=== PATIENT | female | born 1960 | race Caucasian/White ===

== ENCOUNTER 2022-01-09 18:27 | Inpatient (IN) ==
[2022-01-09] MEDS ORDERED: 0.9 % Sodium Chloride 1,000 ML IVC ONE (18:45)
[2022-01-09 19:18] LABS: Basophils % 0.2 %
[2022-01-09 19:20] LABS: VBG Ionized Calcium 1.03 mmol/L (1.15-1.35)
[2022-01-09 19:26] LABS: Prothrombin Time 10.7 Seconds (9.4-12.1)
[2022-01-09 19:29] LABS: Activated Partial Thrombo Time 29.4 Seconds (26.0-36.0)
[2022-01-09 19:58] LABS: Alanine Aminotransferase 55 Units/L (7-52); Albumin 4.2 g/dL (3.5-5.7); Albumin/Globulin Ratio 1.9 (1.1-2.2); Alkaline Phosphatase 69 Units/L (34-104); Aspartate Amino Transferase 68 Units/L (13-39); BUN/Creatinine Ratio 12 (6-26); Bilirubin,Direct 0.1 mg/dL (0.0-0.2); Bilirubin,Indirect 1.2 mg/dL (0.0-1.0); Bilirubin,Total 1.3 mg/dL (0.3-1.0); Blood Urea Nitrogen 9 mg/dL (8-23); Calcium 8.9 mg/dL (8.6-10.3); Carbon Dioxide 22 mEq/L (23-29); Chloride 65 mEq/L (98-107); Creatine Kinase 559 Units/L (30-223); Globulin 2.2 g/dL (2.4-3.5); Glucose 106 mg/dL (70-105); Osmolality,Calculated 209 (280-300); Potassium 3.7 mEq/L (3.5-5.1); Sodium 100 mEq/L (136-145); Total Protein 6.4 g/dL (6.4-8.9); Troponin I 0.03 ng/mL (< 0.04); eGFR For African Americans > 60 (> 60); eGFR For Non-African Americans > 60 (> 60)
[2022-01-09 20:08] LABS: Thyroid Stimulating Hormone 1.644 mcIU/mL (0.340-5.600)
[2022-01-09 20:11] LABS: Immature Granulocytes % 0.7 % (0-4); Lymphocytes # 0.5 K/mcL (0.6-4.6); Lymphocytes % 3.4 %; Mean Platelet Volume 9.7 fL (9.4-12.4); Monocytes # 0.9 K/mcL (0.0-1.3); Monocytes % 7.1 %; Neutrophils # 11.8 K/mcL (1.6-8.9); Platelet Count 215 K/mcL (140-400); Segmented Neutrophils % 88.6 %; White Blood Count 13.3 K/mcL (4.3-11.1)
[2022-01-09] MEDS ORDERED: 0.9 % Sodium Chloride 1,000 ML IVC SCH (20:15)
[2022-01-09] MEDS ORDERED: *HR* FentaNYL (PF) 100 MCG/2 ML VIAL IVP ONE (20:21)
[2022-01-09] MEDS ORDERED: Ondansetron 4 MG/2 ML VIAL IVP ONE (20:21)
[2022-01-09 21:06] LABS: Bilirubin,Urine Negative (Negative); Blood,Urine Negative (Negative); Clarity,Urine Clear (Clear); Color,Urine Light-Yellow (Yellow); Glucose,Urine (UA) Normal (Normal); Ketones,Urine 20 mg/dL (Negative); Leukocyte Esterase,Urine Negative (Negative); Nitrite,Urine Negative (Negative); PH,Urine 5.5 pH Units (5.0-8.0); Protein,Urine Negative (Neg-Trace); Specific Gravity,Urine 1.011 (1.010-1.025); Urobilinogen,Urine Normal (Normal)
[2022-01-09 21:27] LABS: Red Blood Count 3.12 M/mcL (3.82-4.97)
[2022-01-09 21:28] LABS: Hemoglobin 10.5 g/dL (11.5-15.4)
[2022-01-09 21:29] LABS: Mean Corpuscular HGB Conc 37.5 g/dL (31.6-35.5); Mean Corpuscular Hemoglobin 33.7 pg (28.0-33.3)
[2022-01-09 21:30] LABS: Mean Corpuscular Volume 89.7 fL (83.0-100.0)
[2022-01-09] MEDS ORDERED: Melatonin 3 MG TABLET PO PRN (21:45)
[2022-01-09] MEDS ORDERED: Ondansetron 4 MG/2 ML VIAL IVP PRN (21:45)
[2022-01-09] MEDS ORDERED: Naloxone 0.4 MG/ML INJ IVP PRN (21:45)
[2022-01-09] MEDS ORDERED: *HR* LORazepam 2 MG/ML VIAL IVP PRN ×3 (22:02)
[2022-01-09] MEDS: Folic Acid 1 MG in 0.9 % Sodium Chloride 50 ML IVPB SCH (22:39)
[2022-01-09 23:22] LABS: BUN/Creatinine Ratio 14 (6-26); Blood Urea Nitrogen 9 mg/dL (8-23); Calcium 8.1 mg/dL (8.6-10.3); Carbon Dioxide 22 mEq/L (23-29); Chloride 72 mEq/L (98-107); Glucose 104 mg/dL (70-105); Osmolality,Calculated 221 (280-300); Potassium 3.2 mEq/L (3.5-5.1); Sodium 106 mEq/L (136-145); eGFR For African Americans > 60 (> 60); eGFR For Non-African Americans > 60 (> 60)
[2022-01-10] MEDS: D5% in Water 1,000 ML IVC SCH ×2 (00:05→09:07)
[2022-01-10 02:48] LABS: BUN/Creatinine Ratio 11 (6-26); Blood Urea Nitrogen 8 mg/dL (8-23); Carbon Dioxide 25 mEq/L (23-29); Chloride 72 mEq/L (98-107); Glucose 108 mg/dL (70-105); Osmolality,Calculated 219 (280-300); Potassium 3.7 mEq/L (3.5-5.1); Sodium 105 mEq/L (136-145); eGFR For African Americans > 60 (> 60); eGFR For Non-African Americans > 60 (> 60)
[2022-01-10 05:06] LABS: BUN/Creatinine Ratio 12 (6-26); Blood Urea Nitrogen 8 mg/dL (8-23); Carbon Dioxide 25 mEq/L (23-29); Chloride 72 mEq/L (98-107); Glucose 110 mg/dL (70-105); Osmolality,Calculated 219 (280-300); Potassium 3.9 mEq/L (3.5-5.1); Sodium 105 mEq/L (136-145); eGFR For African Americans > 60 (> 60); eGFR For Non-African Americans > 60 (> 60)
[2022-01-10 05:17] LABS: Alanine Aminotransferase 42 Units/L (7-52); Albumin 3.5 g/dL (3.5-5.7); Albumin/Globulin Ratio 1.9 (1.1-2.2); Alkaline Phosphatase 63 Units/L (34-104); Aspartate Amino Transferase 47 Units/L (13-39); Bilirubin,Direct 0.3 mg/dL (0.0-0.2); Bilirubin,Indirect 0.9 mg/dL (0.0-1.0); Bilirubin,Total 1.2 mg/dL (0.3-1.0); Creatine Kinase 622 Units/L (30-223); Globulin 1.8 g/dL (2.4-3.5); Total Protein 5.3 g/dL (6.4-8.9); Troponin I < 0.03 ng/mL (< 0.04)
[2022-01-10 06:58] LABS: BUN/Creatinine Ratio 12 (6-26); Blood Urea Nitrogen 8 mg/dL (8-23); Calcium 8.2 mg/dL (8.6-10.3); Carbon Dioxide 24 mEq/L (23-29); Chloride 71 mEq/L (98-107); Glucose 99 mg/dL (70-105); Osmolality,Calculated 218 (280-300); Sodium 105 mEq/L (136-145); eGFR For African Americans > 60 (> 60); eGFR For Non-African Americans > 60 (> 60)
[2022-01-10 08:56] LABS: BUN/Creatinine Ratio 11 (6-26); Blood Urea Nitrogen 7 mg/dL (8-23); Calcium 8.2 mg/dL (8.6-10.3); Carbon Dioxide 24 mEq/L (23-29); Chloride 71 mEq/L (98-107); Glucose 147 mg/dL (70-105); Osmolality,Calculated 217 (280-300); Potassium 3.8 mEq/L (3.5-5.1); Sodium 103 mEq/L (136-145); eGFR For African Americans > 60 (> 60); eGFR For Non-African Americans > 60 (> 60)
[2022-01-10] MEDS: Ketorolac 30 MG/ML VIAL IVP PRN ×2 (09:07→17:46)
[2022-01-10] MEDS ORDERED: 0.9 % Sodium Chloride 1,000 ML IVC SCH (10:00)
[2022-01-10] MEDS: Folic Acid 1 MG in 0.9 % Sodium Chloride 50 ML IVPB SCH (10:02)
[2022-01-10] MEDS: Thiamine (B-1) 200 MG in 0.9 % Sodium Chloride 50 ML IVPB SCH (10:03)
[2022-01-10] MEDS ORDERED: Lidocaine -MPF 1% 5 ML AMPUL INFILT ONE (11:12)
[2022-01-10 11:18] LABS: Basophils % 0.3 %; Eosinophils % 0.2 %; Immature Granulocytes % 0.5 % (0-4); Lymphocytes # 0.7 K/mcL (0.6-4.6); Lymphocytes % 11.1 %; Mean Platelet Volume 9.1 fL (9.4-12.4); Monocytes # 0.9 K/mcL (0.0-1.3); Monocytes % 14.3 %; Platelet Count 159 K/mcL (140-400); Red Blood Count 2.58 M/mcL (3.82-4.97); Red Cell Distribution Width 11.2 % (11.5-14.5); Segmented Neutrophils % 73.6 %; White Blood Count 6.6 K/mcL (4.3-11.1)
[2022-01-10 11:19] LABS: Hemoglobin 8.6 g/dL (11.5-15.4); Neutrophils # 4.9 K/mcL (1.6-8.9)
[2022-01-10 11:19] LABS: BUN/Creatinine Ratio 11 (6-26); Blood Urea Nitrogen 7 mg/dL (8-23); Calcium 7.9 mg/dL (8.6-10.3); Carbon Dioxide 25 mEq/L (23-29); Chloride 72 mEq/L (98-107); Glucose 127 mg/dL (70-105); Osmolality,Calculated 216 (280-300); Potassium 3.7 mEq/L (3.5-5.1); Sodium 103 mEq/L (136-145); eGFR For African Americans > 60 (> 60); eGFR For Non-African Americans > 60 (> 60)
[2022-01-10 11:20] LABS: Hematocrit 23.8 % (35.3-44.9); Mean Corpuscular HGB Conc 36.1 g/dL (31.6-35.5); Mean Corpuscular Hemoglobin 34.1 pg (28.0-33.3); Mean Corpuscular Volume 94.4 fL (83.0-100.0)
[2022-01-10 13:51] LABS: BUN/Creatinine Ratio 12 (6-26); Blood Urea Nitrogen 8 mg/dL (8-23); Calcium 8.1 mg/dL (8.6-10.3); Carbon Dioxide 25 mEq/L (23-29); Chloride 73 mEq/L (98-107); Glucose 102 mg/dL (70-105); Osmolality,Calculated 217 (280-300); Potassium 3.9 mEq/L (3.5-5.1); Sodium 104 mEq/L (136-145); eGFR For African Americans > 60 (> 60); eGFR For Non-African Americans > 60 (> 60)
[2022-01-10 16:26] LABS: BUN/Creatinine Ratio 14 (6-26); Blood Urea Nitrogen 6 mg/dL (8-23); Calcium 5.8 mg/dL (8.6-10.3); Carbon Dioxide 19 mEq/L (23-29); Chloride 91 mEq/L (98-107); Glucose 83 mg/dL (70-105); Osmolality,Calculated 237 (280-300); Potassium 2.9 mEq/L (3.5-5.1); Sodium 115 mEq/L (136-145); eGFR For African Americans > 60 (> 60); eGFR For Non-African Americans > 60 (> 60)
[2022-01-10] MEDS ORDERED: D5% in Water 1,000 ML IVC SCH (16:45)
[2022-01-10] MEDS: *HR* Heparin 5,000 UNIT/ML VIAL SQ SCH (16:49)
[2022-01-10] MEDS: Calcium Gluconate 1gm/50mL 1 GM/50 ML BAG IVPB SCH ×2 (17:42→18:28)
[2022-01-10 20:46] LABS: BUN/Creatinine Ratio 12 (6-26); Blood Urea Nitrogen 8 mg/dL (8-23); Calcium 8.7 mg/dL (8.6-10.3); Carbon Dioxide 25 mEq/L (23-29); Chloride 72 mEq/L (98-107); Glucose 136 mg/dL (70-105); Osmolality,Calculated 214 (280-300); Potassium 4.2 mEq/L (3.5-5.1); Sodium 102 mEq/L (136-145); eGFR For African Americans > 60 (> 60); eGFR For Non-African Americans > 60 (> 60)
[2022-01-10 23:49] LABS: BUN/Creatinine Ratio 13 (6-26); Blood Urea Nitrogen 8 mg/dL (8-23); Calcium 8.4 mg/dL (8.6-10.3); Carbon Dioxide 24 mEq/L (23-29); Chloride 72 mEq/L (98-107); Glucose 99 mg/dL (70-105); Osmolality,Calculated 214 (280-300); Potassium 4.3 mEq/L (3.5-5.1); Sodium 103 mEq/L (136-145); eGFR For African Americans > 60 (> 60); eGFR For Non-African Americans > 60 (> 60)
[2022-01-11 04:15] LABS: Magnesium 1.2 mg/dL (1.6-2.6); Phosphorous 1.8 mg/dL (2.7-4.5)
[2022-01-11 04:17] LABS: BUN/Creatinine Ratio 13 (6-26); Blood Urea Nitrogen 7 mg/dL (8-23); Calcium 7.3 mg/dL (8.6-10.3); Carbon Dioxide 22 mEq/L (23-29); Chloride 81 mEq/L (98-107); Creatine Kinase 286 Units/L (30-223); Glucose 90 mg/dL (70-105); Osmolality,Calculated 224 (280-300); Potassium 3.8 mEq/L (3.5-5.1); Sodium 108 mEq/L (136-145); eGFR For African Americans > 60 (> 60); eGFR For Non-African Americans > 60 (> 60)
[2022-01-11 05:12] LABS: Hematocrit 18.1 % (35.3-44.9)
[2022-01-11 05:14] LABS: Hemoglobin 6.8 g/dL (11.5-15.4); Immature Platelets 5.6 % (1.1-6.1); Mean Corpuscular HGB Conc 37.6 g/dL (31.6-35.5); Mean Corpuscular Hemoglobin 34.2 pg (28.0-33.3); Mean Platelet Volume 9.7 fL (9.4-12.4); Red Blood Count 1.99 M/mcL (3.82-4.97); Red Cell Distribution Width 11.3 % (11.5-14.5); White Blood Count 6.7 K/mcL (4.3-11.1)
[2022-01-11] MEDS ORDERED: 0.9 % Sodium Chloride 1,000 ML ONE (05:14)
[2022-01-11] MEDS: *HR* Heparin 5,000 UNIT/ML VIAL SQ SCH (05:23)
[2022-01-11 07:14] LABS: BUN/Creatinine Ratio 12 (6-26); Blood Urea Nitrogen 7 mg/dL (8-23); Calcium 7.9 mg/dL (8.6-10.3); Carbon Dioxide 24 mEq/L (23-29); Chloride 75 mEq/L (98-107); Glucose 99 mg/dL (70-105); Osmolality,Calculated 216 (280-300); Potassium 4.2 mEq/L (3.5-5.1); Sodium 104 mEq/L (136-145); eGFR For African Americans > 60 (> 60); eGFR For Non-African Americans > 60 (> 60)
[2022-01-11] MEDS ORDERED: 0.9 % Sodium Chloride 1,000 ML IVC SCH (07:30)
[2022-01-11] MEDS: Folic Acid 1 MG in 0.9 % Sodium Chloride 50 ML IVPB SCH (07:32)
[2022-01-11] MEDS: Thiamine (B-1) 200 MG in 0.9 % Sodium Chloride 50 ML IVPB SCH (07:33)
[2022-01-11 09:12] LABS: BUN/Creatinine Ratio 12 (6-26); Blood Urea Nitrogen 7 mg/dL (8-23); Carbon Dioxide 23 mEq/L (23-29); Chloride 76 mEq/L (98-107); Glucose 101 mg/dL (70-105); Osmolality,Calculated 218 (280-300); Potassium 4.1 mEq/L (3.5-5.1); Sodium 105 mEq/L (136-145); eGFR For African Americans > 60 (> 60); eGFR For Non-African Americans > 60 (> 60)
[2022-01-11 09:32] LABS: BUN/Creatinine Ratio 14 (6-26); Blood Urea Nitrogen 7 mg/dL (8-23); Calcium 7.9 mg/dL (8.6-10.3); Carbon Dioxide 21 mEq/L (23-29); Chloride 75 mEq/L (98-107); Glucose 91 mg/dL (70-105); Osmolality,Calculated 212 (280-300); Potassium 3.7 mEq/L (3.5-5.1); Sodium 102 mEq/L (136-145); eGFR For African Americans > 60 (> 60); eGFR For Non-African Americans > 60 (> 60)
[2022-01-11] MEDS: 0.9 % Sodium Chloride 1,000 ML IVC SCH ×2 (10:44→20:37)
[2022-01-11 14:58] LABS: BUN/Creatinine Ratio 13 (6-26); Blood Urea Nitrogen 6 mg/dL (8-23); Calcium 6.9 mg/dL (8.6-10.3); Carbon Dioxide 23 mEq/L (23-29); Chloride 85 mEq/L (98-107); Glucose 94 mg/dL (70-105); Osmolality,Calculated 233 (280-300); Potassium 3.4 mEq/L (3.5-5.1); Sodium 113 mEq/L (136-145); eGFR For African Americans > 60 (> 60); eGFR For Non-African Americans > 60 (> 60)
[2022-01-11 19:02] LABS: BUN/Creatinine Ratio 14 (6-26); Blood Urea Nitrogen 7 mg/dL (8-23); Calcium 7.1 mg/dL (8.6-10.3); Carbon Dioxide 24 mEq/L (23-29); Chloride 85 mEq/L (98-107); Glucose 119 mg/dL (70-105); Osmolality,Calculated 235 (280-300); Potassium 3.6 mEq/L (3.5-5.1); eGFR For African Americans > 60 (> 60); eGFR For Non-African Americans > 60 (> 60)
[2022-01-11 20:23] LABS: Sodium 113 mEq/L (136-145)
[2022-01-11 23:49] LABS: BUN/Creatinine Ratio 12 (6-26); Blood Urea Nitrogen 7 mg/dL (8-23); Calcium 7.5 mg/dL (8.6-10.3); Carbon Dioxide 25 mEq/L (23-29); Chloride 83 mEq/L (98-107); Glucose 122 mg/dL (70-105); Osmolality,Calculated 235 (280-300); Potassium 3.6 mEq/L (3.5-5.1); Sodium 113 mEq/L (136-145); eGFR For African Americans > 60 (> 60); eGFR For Non-African Americans > 60 (> 60)
[2022-01-12 03:56] LABS: BUN/Creatinine Ratio 12 (6-26); Blood Urea Nitrogen 6 mg/dL (8-23); Carbon Dioxide 24 mEq/L (23-29); Chloride 90 mEq/L (98-107); Glucose 102 mg/dL (70-105); Magnesium 1.6 mg/dL (1.6-2.6); Osmolality,Calculated 246 (280-300); Phosphorous 2.1 mg/dL (2.7-4.5); Potassium 3.2 mEq/L (3.5-5.1); Sodium 119 mEq/L (136-145); eGFR For African Americans > 60 (> 60); eGFR For Non-African Americans > 60 (> 60)
[2022-01-12 05:44] LABS: Hematocrit 19.1 % (35.3-44.9); Mean Corpuscular Volume 89.7 fL (83.0-100.0); Red Blood Count 2.13 M/mcL (3.82-4.97)
[2022-01-12 05:46] LABS: Hemoglobin 7.2 g/dL (11.5-15.4); Immature Platelets 3.5 % (1.1-6.1); Mean Corpuscular Hemoglobin 33.8 pg (28.0-33.3); Red Cell Distribution Width 12.4 % (11.5-14.5); White Blood Count 3.6 K/mcL (4.3-11.1)
[2022-01-12 05:47] LABS: Mean Corpuscular HGB Conc 37.7 g/dL (31.6-35.5)
[2022-01-12 07:30] LABS: BUN/Creatinine Ratio 9 (6-26); Blood Urea Nitrogen 5 mg/dL (8-23); Calcium 7.7 mg/dL (8.6-10.3); Carbon Dioxide 26 mEq/L (23-29); Chloride 86 mEq/L (98-107); Glucose 109 mg/dL (70-105); Osmolality,Calculated 242 (280-300); Potassium 3.4 mEq/L (3.5-5.1); Sodium 117 mEq/L (136-145); eGFR For African Americans > 60 (> 60); eGFR For Non-African Americans > 60 (> 60)
[2022-01-12] MEDS: Thiamine (B-1) 200 MG in 0.9 % Sodium Chloride 50 ML IVPB SCH (08:29)
[2022-01-12 10:56] LABS: BUN/Creatinine Ratio 8 (6-26); Blood Urea Nitrogen 5 mg/dL (8-23); Calcium 7.6 mg/dL (8.6-10.3); Carbon Dioxide 26 mEq/L (23-29); Chloride 87 mEq/L (98-107); Glucose 144 mg/dL (70-105); Osmolality,Calculated 244 (280-300); Potassium 3.5 mEq/L (3.5-5.1); Sodium 117 mEq/L (136-145); eGFR For African Americans > 60 (> 60); eGFR For Non-African Americans > 60 (> 60)
[2022-01-12] MEDS ORDERED: Povidone-Iodine 45 ML, Sodium Chloride IRRigation 1,000 ML IR ONE (12:55)
[2022-01-12] MEDS ORDERED: TOTAL JOINT MIXTURE (100ML) INTRAART ONE (12:55)
[2022-01-12 15:12] LABS: BUN/Creatinine Ratio 9 (6-26); Blood Urea Nitrogen 5 mg/dL (8-23); Calcium 7.8 mg/dL (8.6-10.3); Carbon Dioxide 26 mEq/L (23-29); Chloride 89 mEq/L (98-107); Glucose 114 mg/dL (70-105); Osmolality,Calculated 246 (280-300); Potassium 3.5 mEq/L (3.5-5.1); Sodium 119 mEq/L (136-145); eGFR For African Americans > 60 (> 60); eGFR For Non-African Americans > 60 (> 60)
[2022-01-12 16:55] LABS: BUN/Creatinine Ratio 18 (6-26); Blood Urea Nitrogen 12 mg/dL (8-23); Carbon Dioxide 27 mEq/L (23-29); Chloride 77 mEq/L (98-107); Glucose 129 mg/dL (70-105); Osmolality,Calculated 235 (280-300); Potassium 3.5 mEq/L (3.5-5.1); Sodium 112 mEq/L (136-145); eGFR For African Americans > 60 (> 60); eGFR For Non-African Americans > 60 (> 60)
[2022-01-12] MEDS: 0.9 % Sodium Chloride 1,000 ML IVC SCH (17:25)
[2022-01-12 20:42] LABS: BUN/Creatinine Ratio 10 (6-26); Blood Urea Nitrogen 5 mg/dL (8-23); Calcium 7.7 mg/dL (8.6-10.3); Carbon Dioxide 25 mEq/L (23-29); Chloride 88 mEq/L (98-107); Glucose 104 mg/dL (70-105); Osmolality,Calculated 244 (280-300); Potassium 3.4 mEq/L (3.5-5.1); Sodium 118 mEq/L (136-145); eGFR For African Americans > 60 (> 60); eGFR For Non-African Americans > 60 (> 60)
[2022-01-13 00:53] LABS: BUN/Creatinine Ratio 8 (6-26); Blood Urea Nitrogen 4 mg/dL (8-23); Calcium 7.7 mg/dL (8.6-10.3); Carbon Dioxide 25 mEq/L (23-29); Chloride 88 mEq/L (98-107); Glucose 96 mg/dL (70-105); Osmolality,Calculated 245 (280-300); Potassium 3.3 mEq/L (3.5-5.1); Sodium 119 mEq/L (136-145); eGFR For African Americans > 60 (> 60); eGFR For Non-African Americans > 60 (> 60)
[2022-01-13] MEDS: 0.9 % Sodium Chloride 1,000 ML IVC SCH (04:47)
[2022-01-13 05:12] LABS: Basophils # 0.1 K/mcL (0.0-0.2); Basophils % 0.9 %; Eosinophils # 0.1 K/mcL (0.0-0.6); Eosinophils % 1.3 %; Hemoglobin 7.6 g/dL (11.5-15.4); Immature Granulocytes % 1.3 % (0-4); Lymphocytes # 0.6 K/mcL (0.6-4.6); Lymphocytes % 8.9 %; Mean Corpuscular HGB Conc 36.2 g/dL (31.6-35.5); Mean Corpuscular Hemoglobin 33.6 pg (28.0-33.3); Mean Corpuscular Volume 92.9 fL (83.0-100.0); Mean Platelet Volume 8.8 fL (9.4-12.4); Monocytes % 14.5 %; Platelet Count 153 K/mcL (140-400); Red Blood Count 2.26 M/mcL (3.82-4.97); Red Cell Distribution Width 12.2 % (11.5-14.5); Segmented Neutrophils % 73.1 %; White Blood Count 6.8 K/mcL (4.3-11.1)
[2022-01-13 06:02] LABS: BUN/Creatinine Ratio 9 (6-26); Blood Urea Nitrogen 4 mg/dL (8-23); Calcium 7.6 mg/dL (8.6-10.3); Carbon Dioxide 25 mEq/L (23-29); Chloride 89 mEq/L (98-107); Glucose 95 mg/dL (70-105); Osmolality,Calculated 245 (280-300); Potassium 3.3 mEq/L (3.5-5.1); Sodium 119 mEq/L (136-145); eGFR For African Americans > 60 (> 60); eGFR For Non-African Americans > 60 (> 60)
[2022-01-13] MEDS: Thiamine (B-1) 100 MG TABLET PO SCH (08:06)
[2022-01-13] MEDS: Folic Acid 1 MG TABLET PO SCH (08:06)
[2022-01-13] MEDS: Acetaminophen 325 MG TABLET PO PRN ×2 (08:06→20:46)
[2022-01-13 09:42] LABS: BUN/Creatinine Ratio 10 (6-26); Blood Urea Nitrogen 4 mg/dL (8-23); Carbon Dioxide 23 mEq/L (23-29); Chloride 95 mEq/L (98-107); Glucose 116 mg/dL (70-105); Osmolality,Calculated 254 (280-300); Potassium 3.1 mEq/L (3.5-5.1); Sodium 123 mEq/L (136-145); eGFR For African Americans > 60 (> 60); eGFR For Non-African Americans > 60 (> 60)
[2022-01-13] MEDS: Benzonatate 100 MG CAPSULE PO PRN ×2 (13:12→22:15)
[2022-01-13 15:32] LABS: BUN/Creatinine Ratio 12 (6-26); Blood Urea Nitrogen 6 mg/dL (8-23); Calcium 7.9 mg/dL (8.6-10.3); Carbon Dioxide 25 mEq/L (23-29); Chloride 89 mEq/L (98-107); Glucose 138 mg/dL (70-105); Osmolality,Calculated 252 (280-300); Potassium 3.2 mEq/L (3.5-5.1); Sodium 121 mEq/L (136-145); eGFR For African Americans > 60 (> 60); eGFR For Non-African Americans > 60 (> 60)
[2022-01-13 18:04] LABS: BUN/Creatinine Ratio 11 (6-26); Blood Urea Nitrogen 5 mg/dL (8-23); Calcium 8.1 mg/dL (8.6-10.3); Carbon Dioxide 25 mEq/L (23-29); Chloride 89 mEq/L (98-107); Glucose 109 mg/dL (70-105); Osmolality,Calculated 250 (280-300); Potassium 3.2 mEq/L (3.5-5.1); Sodium 121 mEq/L (136-145); eGFR For African Americans > 60 (> 60); eGFR For Non-African Americans > 60 (> 60)
[2022-01-13 23:17] LABS: BUN/Creatinine Ratio 10 (6-26); Blood Urea Nitrogen 5 mg/dL (8-23); Calcium 7.8 mg/dL (8.6-10.3); Carbon Dioxide 25 mEq/L (23-29); Chloride 90 mEq/L (98-107); Glucose 118 mg/dL (70-105); Osmolality,Calculated 250 (280-300); Potassium 3.3 mEq/L (3.5-5.1); Sodium 121 mEq/L (136-145); eGFR For African Americans > 60 (> 60); eGFR For Non-African Americans > 60 (> 60)
[2022-01-13 23:54] LABS: Adenovirus Not Detected (Not Detect); Bordetella Pertussis Not Detected (Not Detect); Chlamydophila pneumoniae Not Detected (Not Detect); Coronavirus 229E Not Detected (Not Detect); Coronavirus HKU1 Not Detected (Not Detect); Coronavirus NL63 Not Detected (Not Detect); Coronavirus OC43 Not Detected (Not Detect); Human Metapneumovirus Not Detected (Not Detect); Human Rhinovirus/Enterovirus Not Detected (Not Detect); Influenza A Subtype 2009 H1 Not Detected (Not Detect); Influenza B Not Detected (Not Detect); Mycoplasma pneumoniae Not Detected (Not Detect); Parainfluenza Virus 1 Not Detected (Not Detect); Parainfluenza Virus 2 Not Detected (Not Detect); Parainfluenza Virus 3 Not Detected (Not Detect); Parainfluenza Virus 4 Not Detected (Not Detect); Respiratory Syncytial Virus Not Detected (Not Detect); SARS-CoV-2 Not Detected (Not Detect)
[2022-01-14 02:29] LABS: Basophils # 0.1 K/mcL (0.0-0.2); Eosinophils # 0.3 K/mcL (0.0-0.6); Eosinophils % 3.5 %; Hematocrit 20.9 % (35.3-44.9); Hemoglobin 7.7 g/dL (11.5-15.4); Immature Granulocytes % 1.9 % (0-4); Lymphocytes # 0.8 K/mcL (0.6-4.6); Lymphocytes % 10.3 %; Mean Corpuscular HGB Conc 36.8 g/dL (31.6-35.5); Mean Corpuscular Hemoglobin 33.9 pg (28.0-33.3); Mean Corpuscular Volume 92.1 fL (83.0-100.0); Mean Platelet Volume 8.7 fL (9.4-12.4); Monocytes # 1.3 K/mcL (0.0-1.3); Neutrophils # 5.3 K/mcL (1.6-8.9); Platelet Count 180 K/mcL (140-400); Red Blood Count 2.27 M/mcL (3.82-4.97); Red Cell Distribution Width 12.4 % (11.5-14.5); Segmented Neutrophils % 67.3 %; White Blood Count 7.9 K/mcL (4.3-11.1)
[2022-01-14 02:41] LABS: BUN/Creatinine Ratio 11 (6-26); Blood Urea Nitrogen 5 mg/dL (8-23); Calcium 7.8 mg/dL (8.6-10.3); Carbon Dioxide 26 mEq/L (23-29); Chloride 90 mEq/L (98-107); Glucose 108 mg/dL (70-105); Osmolality,Calculated 250 (280-300); Potassium 3.8 mEq/L (3.5-5.1); Sodium 121 mEq/L (136-145); eGFR For African Americans > 60 (> 60); eGFR For Non-African Americans > 60 (> 60)
[2022-01-14 06:02] LABS: BUN/Creatinine Ratio 10 (6-26); Blood Urea Nitrogen 5 mg/dL (8-23); Carbon Dioxide 25 mEq/L (23-29); Chloride 90 mEq/L (98-107); Glucose 106 mg/dL (70-105); Osmolality,Calculated 250 (280-300); Potassium 3.5 mEq/L (3.5-5.1); Sodium 121 mEq/L (136-145); eGFR For African Americans > 60 (> 60); eGFR For Non-African Americans > 60 (> 60)
[2022-01-14] MEDS: Folic Acid 1 MG TABLET PO SCH (08:08)
[2022-01-14] MEDS: Thiamine (B-1) 100 MG TABLET PO SCH (08:08)
[2022-01-14 11:03] LABS: BUN/Creatinine Ratio 10 (6-26); Blood Urea Nitrogen 5 mg/dL (8-23); Calcium 8.2 mg/dL (8.6-10.3); Carbon Dioxide 27 mEq/L (23-29); Chloride 91 mEq/L (98-107); Glucose 103 mg/dL (70-105); Osmolality,Calculated 254 (280-300); Potassium 3.5 mEq/L (3.5-5.1); Sodium 123 mEq/L (136-145); eGFR For African Americans > 60 (> 60); eGFR For Non-African Americans > 60 (> 60)
[2022-01-14] MEDS ORDERED: CeFAZolin Syr 2,000MG/20 ML 2,000 MG/20 ML SYRINGE IVPB ONE (14:23)
[2022-01-14] MEDS ORDERED: Ringers Solution, Lactated 1,000 ML IVC SCH ×2 (14:30→18:02)
[2022-01-14] MEDS ORDERED: *HR* Rocuronium Bromide 50 MG/5 ML VIAL ONE (14:52)
[2022-01-14] MEDS ORDERED: Lidocaine -MPF 2% 2 ML VIAL ONE (14:52)
[2022-01-14] MEDS ORDERED: Ondansetron 4 MG/2 ML VIAL ONE (14:52)
[2022-01-14] MEDS ORDERED: *HR* Succinylcholine 200 MG/10 ML VIAL IVP ONE (14:52)
[2022-01-14] MEDS ORDERED: *HR* Propofol 200 MG/20 ML VIAL IVP ONE (14:52)
[2022-01-14] MEDS ORDERED: *HR* Midazolam HCl 2 MG/2 ML VIAL ONE (14:52)
[2022-01-14] MEDS ORDERED: *HR* FentaNYL (PF) 100 MCG/2 ML VIAL ONE (14:52)
[2022-01-14] MEDS: Ipratropium/Albuterol Neb 3 ML IH PRN ×2 (14:55→17:07)
[2022-01-14] MEDS ORDERED: Acetaminophen IV 1,000 MG/100 ML BAG IVPB PRN ×2 (15:13→18:02)
[2022-01-14] MEDS ORDERED: Ondansetron 4 MG/2 ML VIAL IVP PRN ×3 (15:13→18:02)
[2022-01-14] MEDS ORDERED: *HR* FentaNYL (PF) 100 MCG/2 ML VIAL IVP PRN ×2 (15:13→18:02)
[2022-01-14] MEDS ORDERED: *HR* OxyCODONE Immed Rel 5 MG TABLET PO PRN ×2 (15:13→18:02)
[2022-01-14] MEDS ORDERED: Tranexamic Acid 1,000 MG/10 ML VIAL ONE ×2 (15:42→15:43)
[2022-01-14] MEDS: *HR* HYDROmorphone PF 0.5 MG/0.5 ML SYRINGE IVP PRN ×2 (17:07→17:13)
[2022-01-14] MEDS ORDERED: Ketorolac 30 MG/ML VIAL IVP PRN (17:28)
[2022-01-14] MEDS ORDERED: Acetaminophen 325 MG TABLET PO PRN (18:02)
[2022-01-14] MEDS ORDERED: Ipratropium/Albuterol Neb 3 ML IH PRN (18:02)
[2022-01-14] MEDS ORDERED: Melatonin 3 MG TABLET PO PRN (18:02)
[2022-01-14] MEDS ORDERED: *HR* LORazepam 2 MG/ML VIAL IVP PRN ×3 (18:02)
[2022-01-14] MEDS ORDERED: Benzonatate 100 MG CAPSULE PO PRN (18:02)
[2022-01-14] MEDS ORDERED: Naloxone 0.4 MG/ML INJ IVP PRN (18:02)
[2022-01-14] MEDS ORDERED: *HR* HYDROmorphone PF 0.5 MG/0.5 ML SYRINGE IVP PRN (18:02)
[2022-01-15 05:42] LABS: Hematocrit 20.1 % (35.3-44.9); Hemoglobin 7.1 g/dL (11.5-15.4)
[2022-01-15 06:16] LABS: BUN/Creatinine Ratio 16 (6-26); Blood Urea Nitrogen 8 mg/dL (8-23); Calcium 7.8 mg/dL (8.6-10.3); Carbon Dioxide 26 mEq/L (23-29); Chloride 90 mEq/L (98-107); Glucose 97 mg/dL (70-105); Osmolality,Calculated 254 (280-300); Potassium 3.6 mEq/L (3.5-5.1); Sodium 123 mEq/L (136-145); eGFR For African Americans > 60 (> 60); eGFR For Non-African Americans > 60 (> 60)
[2022-01-15] MEDS: Thiamine (B-1) 100 MG TABLET PO SCH (09:31)
[2022-01-15] MEDS: Folic Acid 1 MG TABLET PO SCH (09:31)
[2022-01-15] MEDS: Aspirin Enteric Coated 325 MG Tablet PO SCH (09:31)
[2022-01-15] MEDS: CeFAZolin 2 GM/120 ML BAG IVPB SCH ×2 (15:17→21:29)
[2022-01-15] MEDS ORDERED: CeFAZolin 2 GM/120 ML BAG IVPB SCH (22:00)
[2022-01-16 05:42] LABS: Basophils # 0.1 K/mcL (0.0-0.2); Basophils % 0.6 %; Eosinophils # 0.3 K/mcL (0.0-0.6); Hematocrit 20.8 % (35.3-44.9); Hemoglobin 7.4 g/dL (11.5-15.4); Immature Granulocytes % 1.7 % (0-4); Lymphocytes # 0.7 K/mcL (0.6-4.6); Lymphocytes % 6.7 %; Mean Corpuscular HGB Conc 35.6 g/dL (31.6-35.5); Mean Corpuscular Hemoglobin 33.9 pg (28.0-33.3); Mean Corpuscular Volume 95.4 fL (83.0-100.0); Mean Platelet Volume 8.2 fL (9.4-12.4); Monocytes % 10.2 %; Neutrophils # 7.5 K/mcL (1.6-8.9); Platelet Count 210 K/mcL (140-400); Red Blood Count 2.18 M/mcL (3.82-4.97); Red Cell Distribution Width 12.7 % (11.5-14.5); Segmented Neutrophils % 77.8 %; White Blood Count 9.7 K/mcL (4.3-11.1)
[2022-01-16 05:58] LABS: BUN/Creatinine Ratio 15 (6-26); Blood Urea Nitrogen 7 mg/dL (8-23); Carbon Dioxide 29 mEq/L (23-29); Chloride 90 mEq/L (98-107); Glucose 106 mg/dL (70-105); Osmolality,Calculated 258 (280-300); Potassium 3.5 mEq/L (3.5-5.1); Sodium 125 mEq/L (136-145); eGFR For African Americans > 60 (> 60); eGFR For Non-African Americans > 60 (> 60)
[2022-01-16] MEDS: Aspirin Enteric Coated 325 MG Tablet PO SCH (08:23)
[2022-01-16] MEDS: Thiamine (B-1) 100 MG TABLET PO SCH (08:23)
[2022-01-16] MEDS: Folic Acid 1 MG TABLET PO SCH (08:23)
[2022-01-17] MEDS: Folic Acid 1 MG TABLET PO SCH (09:11)
[2022-01-17] MEDS: Aspirin Enteric Coated 325 MG Tablet PO SCH (09:11)
[2022-01-17] MEDS: Thiamine (B-1) 100 MG TABLET PO SCH (09:11)
[2022-01-17 09:23] LABS: BUN/Creatinine Ratio 13 (6-26); Blood Urea Nitrogen 6 mg/dL (8-23); Calcium 8.1 mg/dL (8.6-10.3); Carbon Dioxide 32 mEq/L (23-29); Chloride 90 mEq/L (98-107); Glucose 98 mg/dL (70-105); Osmolality,Calculated 264 (280-300); Potassium 3.2 mEq/L (3.5-5.1); Sodium 128 mEq/L (136-145); eGFR For African Americans > 60 (> 60); eGFR For Non-African Americans > 60 (> 60)
[2022-01-17] MEDS ORDERED: Potassium Chloride Elixir 20 MEQ/15 ML UDC PO ONE (22:04)
[2022-01-18 06:54] LABS: Basophils % 0.6 %; Eosinophils # 0.1 K/mcL (0.0-0.6); Eosinophils % 1.9 %; Hematocrit 19.7 % (35.3-44.9); Hemoglobin 6.7 g/dL (11.5-15.4); Immature Granulocytes % 1.8 % (0-4); Lymphocytes # 0.7 K/mcL (0.6-4.6); Lymphocytes % 10.2 %; Mean Corpuscular Hemoglobin 33.2 pg (28.0-33.3); Mean Corpuscular Volume 97.5 fL (83.0-100.0); Mean Platelet Volume 8.5 fL (9.4-12.4); Monocytes # 0.6 K/mcL (0.0-1.3); Monocytes % 8.9 %; Neutrophils # 5.2 K/mcL (1.6-8.9); Platelet Count 287 K/mcL (140-400); Red Blood Count 2.02 M/mcL (3.82-4.97); Red Cell Distribution Width 13.2 % (11.5-14.5); Segmented Neutrophils % 76.6 %; White Blood Count 6.8 K/mcL (4.3-11.1)
[2022-01-18 07:36] LABS: BUN/Creatinine Ratio 12 (6-26); Blood Urea Nitrogen 5 mg/dL (8-23); Calcium 8.1 mg/dL (8.6-10.3); Carbon Dioxide 31 mEq/L (23-29); Chloride 93 mEq/L (98-107); Glucose 104 mg/dL (70-105); Magnesium 1.4 mg/dL (1.6-2.6); Osmolality,Calculated 266 (280-300); Potassium 3.3 mEq/L (3.5-5.1); Sodium 129 mEq/L (136-145); eGFR For African Americans > 60 (> 60); eGFR For Non-African Americans > 60 (> 60)
[2022-01-18] MEDS: Thiamine (B-1) 100 MG TABLET PO SCH (08:48)
[2022-01-18] MEDS: Folic Acid 1 MG TABLET PO SCH (08:48)
[2022-01-18] MEDS: Aspirin Enteric Coated 325 MG Tablet PO SCH (08:48)
[2022-01-18] MEDS ORDERED: 0.9 % Sodium Chloride 1,000 ML ONE (10:13)
[2022-01-18] MEDS ORDERED: Furosemide 40 MG/4 ML VIAL IVP ONE (12:30)
[2022-01-19] MEDS: Thiamine (B-1) 100 MG TABLET PO SCH (08:23)
[2022-01-19] MEDS: Folic Acid 1 MG TABLET PO SCH (08:23)
[2022-01-19] MEDS: Aspirin Enteric Coated 325 MG Tablet PO SCH (08:23)
[2022-01-19 09:26] LABS: Hematocrit 25.5 % (35.3-44.9)
[2022-01-19 09:27] LABS: Hemoglobin 8.9 g/dL (11.5-15.4)
[2022-01-19 09:44] LABS: BUN/Creatinine Ratio 16 (6-26); Blood Urea Nitrogen 8 mg/dL (8-23); Calcium 8.2 mg/dL (8.6-10.3); Carbon Dioxide 32 mEq/L (23-29); Chloride 91 mEq/L (98-107); Glucose 99 mg/dL (70-105); Magnesium 1.6 mg/dL (1.6-2.6); Osmolality,Calculated 268 (280-300); Potassium 3.3 mEq/L (3.5-5.1); Sodium 130 mEq/L (136-145); eGFR For African Americans > 60 (> 60); eGFR For Non-African Americans > 60 (> 60)
[2022-01-19 11:00] VITALS: BP 133/84; PULSE 93; TEMP 98.8; O2SAT 95
== END 2022-01-19 16:13 | DRG 308 ==
LOC: 2NNU 18:27 → EMEROOARM 18:27 → 2NNU 21:23 → SUATTDRO 22:06 → 4WAOSI 01-14 16:33
PROVIDERS: ADMIT Internal Medicine; ATTEND Internal Medicine